=== PATIENT | male | born 1970 | race Caucasian/White ===

== ENCOUNTER 2018-06-10 00:55 | Emergency (ER) | payer MEDICAID, OTHER ==
[~2018-06-10] VITALS: Ht 185.4 cm; Wt 111.4 kg
[~2018-06-10 00:55] MED LIST: KEN0.1O TP; NO HOME MEDS
[2018-06-10 01:03] VITALS: BP 114/97
--- NOTE | 2018-06-10 03:05 | NUR ---
pt lwobs as his girl friend was being discharged. stating that he didnt need [email or web address] be seen. informed
== END 2018-06-10 03:10 | disposition left against medical advice (07) ==
LOC: ER 00:56
DX: R07.81 Pleurodynia (principal); Z53.21 Procedure and treatment not carried out due to patient leaving prior to being seen by health care provider